=== PATIENT | female | born 1980 | race Caucasian/White ===

== ENCOUNTER 2021-11-09 18:44 | Emergency (ER) | payer BC ==
[~2021-11-09] VITALS: Ht 154.9 cm; Wt 79.4 kg
[2021-11-09] MEDS ORDERED: LEVEMIR100 UNIT/1 SUB-Q (19:20)
[2021-11-09] MEDS ORDERED: METFORMIN HCL1000 M1 PO (19:21)
[2021-11-09] MEDS ORDERED: CITALOPRAM HBR10 MG PO (19:22)
[2021-11-09] MEDS ORDERED: COZAAR25 MG PO (19:22)
[2021-11-09] MEDS ORDERED: LIPITOR20 MG PO (19:22)
[2021-11-09] MEDS ORDERED: ASPIRIN81 MG PO (19:22)
[2021-11-09] MEDS ORDERED: ONDANSETRON ODT8 MG PO (20:31)
[2021-11-09] MEDS ORDERED: CYCLOBENZAPRINE10 MG PO (20:31)
[2021-11-09] MEDS ORDERED: PROMETH-CODEIN 65 ML PO (20:46)
== END 2021-11-09 21:05 | disposition home or self-care (01) ==
LOC: ED 18:44
DX: U07.1 COVID-19 (principal); E11.9 Type 2 diabetes mellitus without complications; Z88.2 Allergy status to sulfonamides; Z79.4 Long term (current) use of insulin; Z79.84 Long term (current) use of oral hypoglycemic drugs; Z79.82 Long term (current) use of aspirin; Z79.899 Other long term (current) drug therapy
CPT/HCPCS: 80048; 85025; 96374; 99283-25; A9270; J2405; J7030